=== PATIENT | male | born 1945 | race Caucasian/White ===

== ENCOUNTER 2016-10-25 08:19 | Day surgery (SDC) | payer MEDICARE, BC ==
[~2016-10-25 08:19] MED LIST: KETOROLAC TROMETHAMINE 0.45% 4 DROP/0.4 ML DROPERETTE OS PRN
[2016-10-25] MEDS: CYCLOPENTOLATE 0.2%/PHENYLEPHRINE 1% OPH SOLN 2 ML OS PRN ×3 (09:06→09:26)
[2016-10-25] MEDS: TROPICAMIDE 1% OPH SOLN 3 ML OS PRN ×3 (09:06→09:26)
[2016-10-25] MEDS: BESIFLOXACIN HCL 0.6% OPH SUSP 5 ML BOTTLE OS PRN ×4 (09:06→10:28)
[2016-10-25] MEDS: TETRACAINE HCL 0.5% OPH SOLN 2 ML OS PRN ×3 (09:07→09:55)
[2016-10-25] MEDS ORDERED: CHONDR SU A NA/HYALUR INTRAOC KIT (SURGICARE) ONE (09:19)
[2016-10-25] MEDS ORDERED: PHENYLEPHRINE/KETOROLAC 1%-0.3% 4 ML VIAL ONE (09:19)
[2016-10-25] MEDS ORDERED: LIDOCAINE 1% INJ-PF (10 MG/ML) 30 ML SDV ONE (09:19)
[2016-10-25] MEDS ORDERED: MIDAZOLAM 2 MG/2 ML INJ ONE (09:25)
--- NOTE | 2016-10-25 12:38 | [facility] OPERATIVE REPORT E ---
[facility] Operative Report NAME: NICHO SIMS AGE: 71Y DATE OF SURGERY: 10/25/2016 ROOM: PREOPERATIVE DIAGNOSES: 1. Cataract, left eye. 2. Pupil miosis, left eye. POSTOPERATIVE DIAGNOSIS: 1. Cataract, left eye. 2. Pupil miosis, left eye. OPERATION: Complex cataract extraction with use of a Malyugin ring due to a very miotic pupil. SURGEON: DANNA AREVALO M.D. ANESTHESIA: Topical. DESCRIPTION OF THE PROCEDURE: After obtaining appropriate consent, the patient's left eye was prepped and draped in sterile fashion as well as the surgeon in a sterile manner and cataract surgery was started. First a paracentesis blade was used to make a small side-port incision. Viscoelastic was used to inflate the anterior chamber. Next a 2.4 mm incision was made with the paracentesis blade. A continuous capsulorrhexis incision was made using a cystotome and Utrata forceps. Following this hydrodissection was carried out to make the lens fully loose and mobile and it was rotated 90 degrees. Following this, a twblti-zfw-cbtjlqo technique was used to phacoemulsify the lens with a CDE of 18.46. The remaining cortex was removed with irrigation/aspiration. Provisc was instilled into the capsular bag to inflate the bag. A SN60WF, 19.5 diopter lens was placed. The remaining viscoelastic material was removed with irrigation/aspiration. Following this, a 10-0 nylon suture was used to close the incision and it was found to be watertight. Vigamox was instilled in the eye and a protective shield was placed over the eye. The patient returned to the postoperative recovery in stable condition. Prior to making the capsulorhexis, a Malyugin ring was inserted due to a very miotic pupil. The was removed at the end of the case. DICTATING PHYSICIAN: DANNA AREVALO M.D. [id number] PHY#: [id number] ID: [id number] JOB#: [id number] ACCT: [id number] cc:DANNA AREVALO M.D. >
--- NOTE | 2016-10-25 12:43 | [facility] DISCHARGE SUMMARY E ---
[facility] Discharge Summary NAME: NICHO SIMS AGE: 71Y ADMITTED: 10/25/2016 DISCHARGED: 10/25/2016 BRIEF HISTORY: This is a 71-year-old male who underwent complex cataract extraction. DIAGNOSES: 1. Cataract, left eye. 2. Pupil miosis, left eye, requiring a Malyugin ring. INDICATIONS FOR SURGERY: The patient underwent surgery because he was having trouble seeing small print and words on the TV. DISCHARGE INSTRUCTIONS AND FOLLOWUP: He should be on a regular diet. No bending at his waist. No heavy lifting. He is to use his Besivance, Ilevro and Durezol at 3:00 p.m. and 8:00 p.m. and sleep with a rigid shield. I will see him for his 1-day postoperative tomorrow. DICTATING PHYSICIAN: DANNA AREVALO M.D. [id number] PHY#: [id number] ID: [id number] JOB#: [id number] ACCT: [id number] cc:DANNA AREVALO M.D. >
== END 2016-10-25 11:28 | disposition home or self-care (01) ==
LOC: SC 08:19
PROVIDERS: ATTEND Internal Medicine
PROC: 08RK3JZ Replacement of Left Lens with Synthetic Substitute, Percutaneous Approach (ICD-10-PCS; principal; 2016-10-25 09:30)
DX: H25.13 Age-related nuclear cataract, bilateral (principal); H57.03 Miosis; H43.813 Vitreous degeneration, bilateral; I10 Essential (primary) hypertension; I48.91 Unspecified atrial fibrillation; G47.30 Sleep apnea, unspecified; Z87.891 Personal history of nicotine dependence; Z79.01 Long term (current) use of anticoagulants; Z79.51 Long term (current) use of inhaled steroids
CPT/HCPCS: 66982; V2632; J2250; J3490 ×2; A9270; C9447; 142

== ENCOUNTER 2019-01-29 06:51 | Day surgery (SDC) | payer MEDICARE, BC ==
[~2019-01-29 06:51] MED LIST changes: +KETOROLAC TROMETHAMINE 0.45% 4 DROP/0.4 ML DROPERETTE OD PRN; -KETOROLAC TROMETHAMINE 0.45% 4 DROP/0.4 ML DROPERETTE OS PRN
[2019-01-29] MEDS: CYCLOPENTOLATE 0.2%/PHENYLEPHRINE 1% OPH SOLN 2 ML OD PRN ×3 (07:43→08:04)
[2019-01-29] MEDS: TROPICAMIDE 1% OPH SOLN 3 ML OD PRN ×3 (07:43→08:04)
[2019-01-29] MEDS: BESIFLOXACIN HCL 0.6% OPH SUSP 5 ML BOTTLE OD PRN ×4 (07:43→08:40)
[2019-01-29] MEDS: TETRACAINE HCL 0.5% OPH SOLN 4 ML OD PRN ×4 (07:44→08:15)
[2019-01-29] MEDS ORDERED: MIDAZOLAM 2 MG/2 ML INJ ONE (07:56)
[2019-01-29] MEDS: LIDOCAINE 1%/PHENYLEPHRINE 1.5% 1 ML VIAL ONE ×2 (08:27)
[2019-01-29] MEDS: CHONDR SU A NA/HYALUR INTRAOC KIT (SURGICARE) ONE ×2 (08:27)
[2019-01-29] MEDS: EPINEPHRINE INJ/PF 1 MG/1 ML AMPULE ONE ×2 (08:27)
[2019-01-29] MEDS: DORZOLAMIDE HCL 2%/TIMOLOL MALEAT 0.5% OPH SOLN 10 ML OD PRN ×2 (08:40)
--- NOTE | 2019-01-30 09:55 | [facility] DISCHARGE SUMMARY E ---
[facility] Discharge Summary NAME: NICHO SIMS JR AGE: 74Y ADMITTED: 01/29/2019 DISCHARGED: HOSPITAL COURSE: This is a 74-year-old who underwent complex cataract extraction, right eye. DIAGNOSES: 1. CATARACT, RIGHT EYE. 2. MIOSIS, RIGHT EYE. The patient required a Malyugin ring due to poor pupillary dilation of less than 4 mm. The patient underwent surgery because of having difficulty driving at night secondary to glare from headlights. DISCHARGE INSTRUCTIONS: He should be on regular diet. No bending at the waist, no heavy lifting. He should use his Vigamox, ketorolac, and Predforte at 3 p.m. and 8 p.m. and sleep with a rigid shield. I will see him for 1-day postoperative. DICTATING PHYSICIAN: DANNA AREVALO M.D. [id number] PHY#: [id number] ID: [id number] JOB#: [id number] ACCT: [id number] cc:DANNA AREVALO M.D. >
--- NOTE | 2019-01-30 09:55 | [facility] OPERATIVE REPORT E ---
[facility] Operative Report NAME: NICHO SIMS JR AGE: 74Y DATE OF SURGERY: ROOM: PREOPERATIVE DIAGNOSES: 1. CATARACT RIGHT EYE. 2. PUPIL MIOSIS, RIGHT EYE. POSTOPERATIVE DIAGNOSES: 1. CATARACT RIGHT EYE. 2. PUPIL MIOSIS, RIGHT EYE. OPERATION: Complex cataract extraction with the use of a Malyugin ring due to pupillary miosis where the pupil measured to be less than 4 mm. SURGEON: DANNA AREVALO M.D. ANESTHESIA: TOPICAL. COMPLICATIONS: None. ESTIMATED BLOOD LOSS: None. PROCEDURE: After obtaining appropriate consent, the patient @ eye was prepped and draped in sterile fashion as well as the surgeon in a sterile manner, and the cataract surgery was started. First, the paracentesis blade was used to make a small side-port incision. Viscoelastic was used to inflate the anterior chamber. Next a 2.4 mm incision was made using a 2.4 mm keratome. At this point, the pupil was less than 4.5 mm and was very miotic. In order to complete the capsulorhexis, a Malyugin ring was inserted and found to be in excellent position to help stabilize the pupil. Following this, a continuous capsulorhexis was made using a cystitome and Utrata forceps. Following this, hydrodissection was carried out to make the lens fully loose and mobile, and it was rotated 90 degrees. Following this, a divide and conquer technique was used to phacoemulsify the lens with a CDE of 7.78. The remaining cortex was removed with irrigation/aspiration. Provisc was instilled into the capsular bag to inflate the bag. A SN60WF lens of 19.5 diopters was placed. The remaining viscoelastic material was removed with irrigation/aspiration. After this the Malyugin ring was removed. Following this, the incision was found to be watertight. Besivance was instilled into the eye and a protective shield was placed over the eye. The patient returned to the postoperative recovery in stable condition. This was a complex case due to the fact that the Malyugin ring was used due to poor pupillary dilation of less than or equal to 4 mm. DICTATING PHYSICIAN: DANNA AREVALO M.D. [id number] [id number] PHY#: [id number] ID: [id number] JOB#: [id number] ACCT: [id number] cc:DANNA AREVALO M.D. >
== END 2019-01-29 09:23 | disposition home or self-care (01) ==
LOC: SC 06:51
PROVIDERS: ATTEND Internal Medicine
DX: H25.11 Age-related nuclear cataract, right eye (principal); Z96.1 Presence of intraocular lens; H43.813 Vitreous degeneration, bilateral; H33.191 Other retinoschisis and retinal cysts, right eye; H57.03 Miosis; I10 Essential (primary) hypertension; I48.91 Unspecified atrial fibrillation; Z87.891 Personal history of nicotine dependence; Z79.899 Other long term (current) drug therapy; Z79.01 Long term (current) use of anticoagulants
CPT/HCPCS: 66982; V2632; J2250; J3490 ×2; A9270; J0171; J2370; 142